=== PATIENT | male | born 1965 | race Caucasian/White ===

== ENCOUNTER 2021-04-16 05:47 | Day surgery (SDC) | payer BC ==
[2021-04-07 16:19] VITALS: BMI 30.8
[2021-04-16] MEDS ORDERED: ROCURONIUM BROMIDE 50 MG/5 ML SYRINGE ONE (07:10)
[2021-04-16] MEDS ORDERED: SUCCINYLCHOLINE CHLORIDE 200 MG/10 ML SYRINGE ONE (07:10)
[2021-04-16] MEDS ORDERED: DEXAMETHASONE SOD PHOSPHATE 4 MG/1 ML VIAL ONE (07:11)
[2021-04-16] MEDS ORDERED: ONDANSETRON 4 MG/2 ML VIAL ONE (07:11)
[2021-04-16] MEDS ORDERED: KETOROLAC TROMETHAMINE 30 MG/1 ML VIAL ONE (07:11)
[2021-04-16] MEDS ORDERED: PROPOFOL 20 ML ONE ×2 (07:11→08:18)
[2021-04-16] MEDS ORDERED: LIDOCAINE HCL/PF 2% SDV 5ML VIAL ONE (07:12)
[2021-04-16] MEDS ORDERED: MIDAZOLAM HCL 2 MG/2 ML SINGLE DOSE VIAL ONE (07:25)
[2021-04-16] MEDS ORDERED: ROPIVACAINE HCL 0.5% 30ML VIAL ONE (07:25)
[2021-04-16] MEDS ORDERED: oxyCODONE HCL 5 MG TABLET PO PRN ×2 (07:44)
[2021-04-16] MEDS ORDERED: ACETAMINOPHEN 1000 MG/100 ML VIAL (NON FORMULARY) IVPB ONE (07:44)
[2021-04-16] MEDS ORDERED: ONDANSETRON 4 MG/2 ML VIAL IVPUSH PRN (07:44)
[2021-04-16] MEDS ORDERED: LACTATED RINGERS SOLUTION 1,000 ML IV SCH (07:45)
[2021-04-16] MEDS ORDERED: ceFAZolin SODIUM 1 GM VIAL ONE (08:20)
[2021-04-16] MEDS ORDERED: SODIUM CHLORIDE 0.9% P/F 10 ML VIAL IJ ONE (08:20)
[2021-04-16] MEDS ORDERED: oxyCODONE HCL 10 MG SUSTAINED ACTING TABLET PO SCH (10:00)
[2021-04-16 12:09] VITALS: BP 125/84; PULSE 71; TEMP 97
[2021-04-16] MEDS ORDERED: ACETAMINOPHEN 500 MG TABLET (FP) PO SCH (20:00)
== END 2021-04-16 12:09 | disposition home or self-care (01) ==
LOC: FASU 05:47
PROVIDERS: ATTEND Orthopaedic Surgery
PROC: 0LQ20ZZ Repair Left Shoulder Tendon, Open Approach (ICD-10-PCS; principal; 2021-04-16 08:30)
PROC: 0RNK4ZZ Release Left Shoulder Joint, Percutaneous Endoscopic Approach (ICD-10-PCS; 2021-04-16 08:30)
DX: M75.122 Complete rotator cuff tear or rupture of left shoulder, not specified as traumatic (principal); M75.42 Impingement syndrome of left shoulder
CPT/HCPCS: 94760; J0131